=== PATIENT | female | born 1995 | race African-American/Black ===

== ENCOUNTER 2020-04-09 21:43 | Emergency (ER) | payer SELFPAY ==
[~2020-04-09] VITALS: Ht 172.7 cm; Wt 65.0 kg
[2020-04-09] MEDS ORDERED: IV NORMAL SALINE 1000ML BAG 1,000 ML IV ONE (23:00)
[2020-04-09] MEDS ORDERED: fentaNYL PF VIAL 100 MCG/2 ML VIAL IVP ONE (23:00)
--- NOTE | 2020-04-09 23:02 | RAD ---
Exam: CT head, cervical spine and thoracic spine without contrast INDICATION: Pain, status post fall downstairs TECHNIQUE: Sequential axial images through the head, cervical spine and thoracic spine were obtained without the administration of IV contrast. Comparisons: None FINDINGS: Head: No focal parenchymal lesion or hemorrhage is identified. There is no midline shift or sulcal effacement. No acute vascular territory infarction is identified. Casas-white distinction is preserved. The ventricular system is within normal limits without compression hydrocephalus. The basal cisterns are well maintained. The visualized portions of the paranasal sinuses and mastoid air cells are well-pneumatized. No acute fractures. Cervical spine: Straightening of the cervical spine which may positional. There is mild compression involving the superior endplate of T7. Displaced fracture to the cervical spine is not identified. No significant spondylotic change in the cervical spine. Visualized paraspinal soft tissues are unremarkable. Thoracic spine: Vertebral body heights and alignment are well-maintained. Fracture to the thoracic spine is not identified. No significant spondylotic change in cervical spine. Visualized soft tissues are unremarkable. IMPRESSION: 1. No acute intracranial abnormality. 2. Mild compression deformity involving the superior endplate of C7, age indeterminant. Correlate with point tenderness. 3. Negative CT T spine for acute traumatic injury. Exposure: One or more of the following in the visualized dose reduction techniques were utilized for this examination: 1. Automated exposure control 2. Adjustment of the MA and/or KV according to patient size Use of iterative of reconstructive technique Electronically signed by: Katalina Dyer MD (04/09/2020 10:59 PM) [id number]
--- NOTE | 2020-04-09 23:36 | PHYS DOC ---
Past Medical History Past Medical History: No Pertinent History Past Surgical History: No Surgical History Alcohol Use: Occasionally Drug Use: None General Adult EDM: Chief Complaint: TRAUMA ALERT HPI: HPI: Christina is a 25-year-old -[place] female who presents to the ED approximately 30 minutes post fall. Patient reports walking on her second story of her home when she stepped on a kids toy and fell on the stairs. Patient reports falling down 15 wooden stairs. This was a witnessed fall, additionally the patient does not report any loss of consciousness or head injury. Proximately 3 weeks prior the patient reports having fractured C6-C7 in a separate fall when she slipped and fell in her bathtub. Today she reports pain in her neck radiating down to her mid back, that she describes as sharp and 10 out of 10. Patient does not report any loss of sensation in her upper extremities or weakness. Patient denies any headache, nausea, or vomiting. Sherri diaz does report mild back and extremity pain however she describes this is just mild bruising secondary to her fall. The patient does report feeling safe in her home. Here her story is consistent with physical exam findings. Past medical history: C 67 fracture proximal 3 weeks ago. Past surgical history: None Meds: None Review of Systems: Review of Systems: Constitutional: Denies fever or chills Eyes: Denies redness or eye pain HENT: Denies nasal congestion or sore throat Respiratory: Denies cough or shortness of breath Cardiovascular: Denies chest pain or palpitations GI: Denies abdominal pain, nausea, or vomiting : Denies dysuria or hematuria Musculoskeletal: Denies back pain or joint pain Integument: Denies rash or skin lesions Neurologic: Denies headache, focal weakness or sensory changes Complete systems were reviewed and found to be within normal limits, except as documented in this note. Family History: Family History: Father: Healthy Mother: Neck injury Current Medications: Current Medications Medications (Trade) Dose Ordered Sig/Hailey Start Time Stop Time Status Last Admin Dose Admin Fentanyl Citrate (Fentanyl 2ml Vial) 50 mcg 1X ONCE 04/09/20 23:00 04/09/20 23:01 DC 04/09/20 23:01 50 MCG Sodium Chloride 1,000 ml @ 1,000 mls/hr 1X ONCE 04/09/20 23:00 04/09/20 23:59 04/09/20 23:01 1,000 MLS/HR Home meds: None Allergies: Allergies: Allergies Coded Allergies Type Severity Reaction Last Updated Verified No Known Drug Allergies 09/11/13 No Physical Exam: PE: Constitutional: Well developed, well nourished, no acute distress, non-toxic appearance HENT: Normocephalic, atraumatic, cranial nerves II through XII intact bilaterally. Eyes: PERRL, EOMI, conjunctiva normal, no discharge Neck: Tenderness to palpation of the neck, range of motion not evaluated due to cervical collar. Lungs & Thorax: Bilateral breath sounds clear to auscultation, no wheezing Heart: Regular rate and rhythm no murmurs. S1 and S2 normal. S3 and S4 not heard. Abdomen: Soft, no tenderness. Bowel sounds present all 4 quadrants. Skin: Warm, dry, no erythema, no rash Back: No tenderness, no CVA tenderness. Mild tenderness of the mid thoracic back no step-off Extremities: No tenderness, ROM intact, no edema. 5 out of 5 strength in to flexion extension, shoulder abduction and abduction of the upper extremity. 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 Intact proprioception two-point tactile of the upper extremity. Neurologic: Alert and oriented X 3, normal motor function, normal sensory function, no focal deficits noted. 2+4 DTRs in all 4 extremities. Psychologic: Affect normal, judgment normal Patient was evaluated for any suspicious injuries that might indicate intimate partner violence, none were found. Current Patient Data: Labs: Laboratory Tests Test 04/09/20 22:08 Maternal Serum HCG Beta Subunit < 1 mIU/mL (0-5) Vital Signs: Vital Signs Date Time Temp Pulse Resp B/P (MAP) Pulse Ox O2 Delivery O2 Flow Rate FiO2 04/09/20 23:01 18 100 Room Air EKG: EKG: [] Radiology/Procedures: Radiology/Procedures: Exam: CT head, cervical spine and thoracic spine without contrast INDICATION: Pain, status post fall downstairs TECHNIQUE: Sequential axial images through the head, cervical spine and thoracic spine were obtained without the administration of IV contrast. Comparisons: None FINDINGS: Head: No focal parenchymal lesion or hemorrhage is identified. There is no midline shift or sulcal effacement. No acute vascular territory infarction is identified. Casas-white distinction is preserved. The ventricular system is within normal limits without compression hydrocephalus. The basal cisterns are well maintained. The visualized portions of the paranasal sinuses and mastoid air cells are well-pneumatized. No acute fractures. Cervical spine: Straightening of the cervical spine which may positional. There is mild compression involving the superior endplate of T7. Displaced fracture to the cervical spine is not identified. No significant spondylotic change in the cervical spine. Visualized paraspinal soft tissues are unremarkable. Thoracic spine: Vertebral body heights and alignment are well-maintained. Fracture to the thoracic spine is not identified. No significant spondylotic change in cervical spine. Visualized soft tissues are unremarkable. IMPRESSION: 1. No acute intracranial abnormality. 2. Mild compression deformity involving the superior endplate of C7, age indeterminant. Correlate with point tenderness. 3. Negative CT T spine for acute traumatic injury. Exposure: One or more of the following in the visualized dose reduction techniques were utilized for this examination: 1. Automated exposure control 2. Adjustment of the MA and/or KV according to patient size Use of iterative of reconstructive technique Electronically signed by: Katalina Michael MD (04/09/2020 10:59 PM) [id number] DICTATED and SIGNED BY: KATALINA MICHAEL MD DATE: 04/09/20 2259 Course & Med Decision Making: Course & Med Decision Making Pertinent Labs and Imaging studies reviewed. (See chart for details) 25-year-old -[place] female presents with acute neck injury post fall. Differential diagnosis: Acute neck fracture, displaced cervical disc -CT head neck and thoracic spine Dragon Disclaimer: Dragon Disclaimer: This electronic medical record was generated, in whole or in part, using a voice recognition dictation system. Departure Departure Impression: Primary Impression: Fall down stairs Qualified Codes: W10.8XXA - Fall (on) (from) other stairs and steps, initial encounter Additional Impressions: Cervical strain Qualified Codes: S16.1XXA - Strain of muscle, fascia and tendon at neck level, initial encounter Compression fracture of C7 vertebra Qualified Codes: S12.690A - Other displaced fracture of seventh cervical vertebra, initial encounter for closed fracture Disposition: HOME, SELF-CARE Condition: STABLE Referrals: NO PCP (PCP) Patient Instructions: Cervical Spine Fracture, Stable, Cervical Strain and Sprain with Rehab-[facility], Fall Prevention and Home Safety, [id number] Scripts Orphenadrine Citrate (ORPHENADRINE CITRATE) 100 Mg Tablet.er 100 MG PO BID PRN for MOUTH PAIN, #14 TAB Prov: HANNAH LUND DO 04/10/20 Oxycodone/Apap 5-325 (PERCOCET 5-325 MG TABLET ) 1 Each Tablet 0.5-1 TAB PO PRN Q6HRS PRN for PAIN, #10 TAB 0 Refills Prov: HANNAH LUND DO 04/10/20 Justicifation of Admission Dx: Justifications for Admission: Justification of Admission Dx: N/A HANNAH LUND DO Apr 09, 2020 23:36
[2020-04-10] MEDS ORDERED: ORPH100T PO (00:23)
[2020-04-10] MEDS ORDERED: OXYC1TAB15 PO (00:23)
[2020-04-10 00:31] VITALS: BP 139/88
== END 2020-04-10 00:38 | disposition home or self-care (01) ==
LOC: ER 21:43
DX: S12.690A Other displaced fracture of seventh cervical vertebra, initial encounter for closed fracture (principal); S16.1XXA Strain of muscle, fascia and tendon at neck level, initial encounter; R51 Headache; M54.6 Pain in thoracic spine; W10.8XXA Fall (on) (from) other stairs and steps, initial encounter; Y93.89 Activity, other specified; Y92.89 Other specified places as the place of occurrence of the external cause; Y99.8 Other external cause status
CPT/HCPCS: 36415; 70450; 72125; 72128; 84702; 96361; 96374; 99285; J3010; J7030